=== PATIENT | female | born 1975 | race Caucasian/White ===

== ENCOUNTER 2017-04-18 13:51 | Outpatient (CLI) | payer SELFPAY ==
[2017-04-18 14:08] VITALS: BP 101/61
[2017-04-18] MEDS ORDERED: LACTATED RINGERS 500 ML IV ONE (14:09)
[2017-04-18 14:58] LABS: Bacteria,Urine 1+ /HPF (Negative); Bilirubin,Urine NEG (Negative); Blood,Urine SM (Negative); Ketones,Urine NEG (Negative); Leukocyte Esterase,Urine TR (Negative); Mucus,Urine FEW /HPF; Nitrite,Urine NEG (Negative); Protein,Urine <15 mg/dL mg/dL (Negative); Urobilinogen,Urine < 2.0 mg/dL (<2.0)
--- NOTE | 2017-04-18 15:53 | Progress Note ---
Assessment and Plan A: at 22 weeks, 4 days gestation. Vaginal bleeding. Abdominal pain. P: EFM. US to check placental location and integrity and measure cervical length. IV hydration. VS monitoring. Labs (CBC, T&S, PT, PTT, fibrinogen, UA, UDS). Consulted with Dr. Chen regarding this patient and interventions ordered. Subjective - Subjective Date of service: 04/18/17 Principal diagnosis: at 22 weeks, 4 days gestation; vaginal bleeding for 5-6 days Interval history: 41 year old female presents to L&D triage complaining of vaginal bleeding for past 5-6 days. She states bleeding is light to moderate and was heaviest yesterday. Patient reports bleeding is maroon color and she has to change a pad about 4 times per day but it is not soaked every time. Patient denies leaking of fluid. She denies falls or abdominal trauma. She denies regular contractions. She reports mild cramping in lower pelvic midline. She reports active movement. Patient denies urinary symptoms. She reports 3 previous SVDs at term; she reports that all three of her previous pregnancies were uncomplicated. She states she has been receiving care at [facility] but no records are available today. Patient reports: vaginal bleeding, movement normal, no loss of fluid, no contractions Objective - Vital Signs Vital Signs: Vital Signs - 12hr 04/18/17 04/18/17 04/18/17 14:09 14:10 14:11 Temperature 96.9 F L Pulse Rate 83 98 H 86 Respiratory 20 Rate Blood Pressure 101/61 Blood Pressure 101/61 [Right] O2 Sat by Pulse 98 98 Oximetry 04/18/17 04/18/17 04/18/17 14:14 14:19 14:24 Temperature Pulse Rate 99 H 98 H 102 H Respiratory Rate Blood Pressure Blood Pressure [Right] O2 Sat by Pulse 98 98 98 Oximetry 04/18/17 04/18/17 04/18/17 14:29 14:34 14:39 Temperature Pulse Rate 98 H 96 H 95 H Respiratory Rate Blood Pressure Blood Pressure [Right] O2 Sat by Pulse 97 98 98 Oximetry 04/18/17 04/18/17 04/18/17 14:44 14:49 14:54 Temperature Pulse Rate 82 90 85 Respiratory Rate Blood Pressure Blood Pressure [Right] O2 Sat by Pulse 99 97 98 Oximetry - Exam Breasts: deferred Abdomen: Present: normal appearance, soft. Absent: distention, tenderness, guarding Uterus: Present: normal, other (gravid; maroon bleeding seen in vagina, moderate amount; no clots seen). Absent: tenderness FHR: other (FHR AGA, normal baseline) Uterine Contraction Monitor Mode: Palpation Uterine Contraction Frequency (min): Irritability Extremities: normal - Labs Labs: Laboratory Results - last 24 hr 04/18/17 14:20 Urine Color Yellow Urine Turbidity Clear Urine pH 6.0 Ur Specific [place] 1.024 Urine Protein <15 mg/dl Urine Glucose (UA) Neg Urine Ketones Neg Urine Blood Sm Urine Nitrite Neg Urine Bilirubin Neg Urine Urobilinogen < 2.0 Ur Leukocyte Esterase Tr Urine WBC (Auto) 3.0 Urine RBC (Auto) 5.0 U Epithel Cells (Auto) 3.0 Urine Bacteria (Auto) 1+ Urine Mucus Few
--- NOTE | 2017-04-18 17:06 | Ultrasound Report ---
FINAL REPORT EXAM: US OB LIMITED HISTORY: vaginal bleeding/abdominal pain/ 22 4/7wk TECHNIQUE: Grayscale and color doppler ultrasound of the fetus was performed. PRIORS: None. FINDINGS: A single, live intrauterine fetus is present in transverse with the head to the maternal left presentation with a heart rate of 153 beats per minute. The placenta is grade 0 and anterior in location. No evidence of placenta previa. The maternal cervix is closed measuring 3.7 centimeters in length. The amniotic fluid volume is subjectively normal. Two uterine fibroids are seen anteriorly. One measures 2.0 x 2.0 x 1.2 centimeters and the other measures 1.6 x 1.5 x 1.2 centimeters. No evidence of placental abruption. IMPRESSION: Live intrauterine fetus. No evidence of placental abnormality. Two small uterine fibroids.
[2017-04-18 17:48] LABS: Eosinophils % (Auto) 4.7 % (0.0-4.3); Hematocrit 27.6 % (30.3-42.9); Hemoglobin 9.6 gm/dl (10.1-14.3); Mean Corpuscular HGB Conc 35 % (30-34); Mean Corpuscular Hemoglobin 32 pg (28-32); Mean Corpuscular Volume 92 fl (79-97); Platelet Count 288 K/mm3 (140-440); Red Cell Distribution Width 13.9 % (13.2-15.2); White Blood Count 11.3 K/mm3 (4.5-11.0)
[2017-04-18 18:10] LABS: INR 1.06 (0.87-1.13)
[2017-04-18 18:11] LABS: Partial Thromboplastin Time 25.7 Sec. (24.2-36.6)
--- NOTE | 2017-04-18 19:18 | Event Note ---
Date: 04/18/17 US shows 2 small fibroids, otherwise normal. Labs show mild anemia. Cervix closed and thick. No contractions. Follow up speculum exam performed and very scant amount of pinkish brown discharge seen in posterior fornix. No active bleeding seen. No leaking of water seen. Normal FHR. Advised patient she needs to see perinatologist. I told her I will call [facility] tomorrow and tell them to set her up to see [facility] as soon as possible. Rx for iron, Macrobid and Flagyl with instructions. Advised pt. to rest and avoid IC and drink more water. Warning signs reviewed. Pt. voiced understanding of discharge instructions. Dr. Chen consulted and states he is in agreement with this plan.
== END 2017-04-18 19:39 | disposition home or self-care (01) ==
LOC: TRG 13:51
PROVIDERS: ATTEND Obstetrics & Gynecology
DX: O46.92 Antepartum hemorrhage, unspecified, second trimester (principal); O32.2XX0 Maternal care for transverse and oblique lie, not applicable or unspecified; O34.12 Maternal care for benign tumor of corpus uteri, second trimester; O99.012 Anemia complicating pregnancy, second trimester; O26.892 Other specified pregnancy related conditions, second trimester; R10.9 Unspecified abdominal pain; O47.02 False labor before 37 completed weeks of gestation, second trimester; Z3A.22 22 weeks gestation of pregnancy
CPT/HCPCS: 36415; 76815; 81001; 85025; 85384; 85610; 85730; 86850; 86900; 86901; 96360; J7120

== ENCOUNTER 2017-07-31 12:02 | Outpatient (CLI) | payer SELFPAY ==
[2017-07-31 12:48] VITALS: BP 106/66
[2017-07-31] MEDS ORDERED: TYLENOL PO ONE (13:22)
[2017-07-31 13:41] LABS: Bilirubin,Urine NEG (Negative); Blood,Urine NEG (Negative); Ketones,Urine NEG (Negative); Leukocyte Esterase,Urine NEG (Negative); Mucus,Urine FEW /HPF; Nitrite,Urine NEG (Negative); Protein,Urine <15 mg/dL mg/dL (Negative); Urobilinogen,Urine < 2.0 mg/dL (<2.0)
== END 2017-07-31 14:18 | disposition home or self-care (01) ==
LOC: TRG 12:02
PROVIDERS: ATTEND Obstetrics & Gynecology
DX: O09.523 Supervision of elderly multigravida, third trimester (principal); O47.1 False labor at or after 37 completed weeks of gestation; Z3A.38 38 weeks gestation of pregnancy
CPT/HCPCS: 59025; 81001

== ENCOUNTER 2017-08-11 06:45 | Inpatient (IN) | payer OTHER ==
[2017-08-11] MEDS: LACTATED RINGERS 1,000 ML IV SCH ×2 (08:35→10:56)
[2017-08-11 08:56] LABS: Basophils # (Auto) 0.1 K/mm3 (0.0-0.1); Eosinophils # (Auto) 0.6 K/mm3 (0.0-0.4); Eosinophils % (Auto) 5.4 % (0.0-4.3); Hematocrit 34.1 % (30.3-42.9); Hemoglobin 11.5 gm/dl (10.1-14.3); Lymphocytes # (Auto) 2.2 K/mm3 (1.2-5.4); Lymphocytes % (Auto) 19.9 % (13.4-35.0); Mean Corpuscular HGB Conc 34 % (30-34); Mean Corpuscular Hemoglobin 30 pg (28-32); Mean Corpuscular Volume 91 fl (79-97); Monocytes # (Auto) 0.6 K/mm3 (0.0-0.8); Monocytes % (Auto) 5.3 % (0.0-7.3); Platelet Count 286 K/mm3 (140-440); Red Blood Count 3.77 M/mm3 (3.65-5.03)
[2017-08-11] MEDS ORDERED: POLYCILLIN/NS 2 GM/100 ML 2 GM/100 ML BAG IV ONE (09:00)
[2017-08-11] MEDS ORDERED: SUBLIMAZE IV NR (09:30)
[2017-08-11] MEDS ORDERED: LACTATED RINGERS 1,000 ML IV SCH (11:00)
[2017-08-11] MEDS ORDERED: PITOCin/NS 20 UNIT/1000ML DRIP 20 UNITS/1,000 ML BAG IV SCH (11:00)
[2017-08-11] MEDS ORDERED: PITOCin/NS 30 UNIT/500ML 30 UNITS/500 ML BAG IV SCH (11:00)
[2017-08-11] MEDS ORDERED: BRETHINE SUB-Q PRN (11:30)
[2017-08-11] MEDS ORDERED: XYLOCAINE 2% INFILTRATI ONE (11:30)
[2017-08-11] MEDS ORDERED: STADOL IV PRN (11:30)
[2017-08-11] MEDS ORDERED: ePHEDrine SULFATE IV PRN ×2 (11:30→17:03)
[2017-08-11] MEDS ORDERED: BRETHINE IVP PRN (12:00)
[2017-08-11] MEDS ORDERED: POLYCILLIN/NS 1 GM/50 ML 1 GM/50 ML BAG IV SCH (14:00)
--- NOTE | 2017-08-11 14:31 | History and Physical Report ---
History of Present Illness Date of examination: 08/11/17 Date of admission: 08/11/17 08:16 Chief complaint: My water broke at 0500 this morning History of present illness: States she got care at [facility], clinic was contacted, they state she only had one visit in March. [facility] is unable to fax records due to their power being out. Past History Past Medical History: no pertinent history Past Surgical History: no surgical history Family/Genetic History: none Social history: no significant social history - Obstetrical History Expected Date of Delivery: 08/18/17 Actual Gestation: 39 Week(s) 0 Day(s) : 5 Para: 4 Number of Living Children: 4 Medications and Allergies Allergies Allergy/AdvReac Type Severity Reaction Status Date / Time No Known Allergies Allergy Verified 07/31/17 13:34 Home Medications Medication Instructions Recorded Confirmed Last Taken Type Vit-Fe Fumar-FA [ 1 tab PO QDAY 07/31/17 08/11/17 08/10/17 12: 00 History Vitamin] Active Meds: Active Medications Butorphanol Tartrate (Stadol) 2 mg IV Q2H PRN PRN Reason: Labor Pain Ephedrine Sulfate (Ephedrine Sulfate) 10 mg IV Q2M PRN PRN Reason: Hypotension Stop: 08/11/17 16:00 Ampicillin Sodium (Polycillin/Ns 1 Gm/50 Ml) 1 gm in 50 mls @ 100 mls/hr IV Q4HR LUIS PRN Reason: Protocol Lactated Ringer's (Lactated Ringers) 1,000 mls @ 125 mls/hr IV DIRECT LUIS Oxytocin/Sodium Chloride (Pitocin/Ns 20 Unit/1000ml Drip) 20 units in 1,000 mls @ 125 mls/hr IV DIRECT LUIS Oxytocin/Sodium Chloride (Pitocin/Ns 30 Unit/500ml) 30 units in 500 mls @ 4 mls /hr IV TITR LUIS; 4 MILLIUNITS/MIN PRN Reason: Protocol Last Titration: 08/11/17 12:52 Dose: 12 milliunits/min, 12 mls/hr Mineral Oil (Mineral Oil) 30 ml PO QHS PRN PRN Reason: Constipation Terbutaline Sulfate (Brethine) 0.25 mg SUB-Q ONCE PRN PRN Reason: Hyperstimulation/Hypertonicity Terbutaline Sulfate (Brethine) 0.25 mg IVP ONCE PRN PRN Reason: Hyperstimulation/Hypertonicity Review of Systems All systems: negative - Vital Signs Vital signs: Vital Signs Temp Pulse Resp BP 98.3 F 83 18 115/70 08/11/17 08:40 08/11/17 08:40 08/11/17 08:40 08/11/17 08:40 Temp Pulse Resp BP Pulse Ox 98.3 F 82 16 121/72 08/11/17 11:29 08/11/17 11:34 08/11/17 11:29 08/11/17 11:34 - Physical Exam Abdomen: Positive: normal appearance Genitourinary (Female): Positive: normal external genitalia, normal perenium Vagina: Positive: normal moisture Uterus: Positive: enlarged Anus/Rectum: Positive: normal perianal skin - Obstetrical FHR: category 1 Uterine Contraction Monitor Mode: External Cervical Dilatation: 3 (moderate amount of clear fluid leaking) Cervical Effacement Percentage: 30 station: -2 Uterine Contraction Pattern: Irregular Uterine Tone Measurement Phase: Resting Uterine Contraction Intensity: Mild Results Result Diagrams: 08/11/17 08:35 Abnormal lab results 08/11/17 Range/Units 08:35 Eos % (Auto) 5.4 H (0.0-4.3) % Eos # 0.6 H (0.0-0.4) K/mm3 All other labs normal. Assessment and Plan A: IUP @39 Weeks PROM Category I Tracing GBS Unknown Insufficient Care P: Admit to L&D per routine orders Walk-In Labs Pitocin Induction GBS prophylaxis
[2017-08-11] MEDS ORDERED: ePHEDrine SULFATE ONE (16:47)
[2017-08-11] MEDS ORDERED: NARCAN 2 MG/2 ML IV PRN (17:03)
--- NOTE | 2017-08-11 17:03 | Anesthesia Consultation ---
Anesthesia Consult and Med Hx Date of service: 08/11/17 - Airway Anesthetic Teeth Evaluation: Good ROM Head & Neck: Adequate Mental/Hyoid Distance: Adequate Intubation Access Assessment: Probably Good - Pre-Operative Health Status ASA Pre-Surgery Classification: ASA2, Emergency Proposed Anesthetic Plan: Epidural, Spinal - Pulmonary Hx Asthma: No COPD: No Hx Pneumonia: No - Cardiovascular System Hx Hypertension: No - Central Nervous System Hx Seizures: No Hx Psychiatric Problems: No - Endocrine Hx Renal Disease: No Hx End Stage Renal Disease: No Hx Hypothyroidism: No Hx Hyperthyroidism: No - Hematic Hx Anemia: No Hx Sickle Cell Disease: No - Other Systems Hx Alcohol Use: No
[2017-08-11] MEDS ORDERED: MINERAL OIL ONE (17:04)
[2017-08-11] MEDS ORDERED: BENADRYL PO PRN (17:27)
[2017-08-11] MEDS ORDERED: PHENERGAN PR PRN (17:27)
[2017-08-11] MEDS ORDERED: MILK OF MAGNESIA PO PRN (17:27)
--- NOTE | 2017-08-11 17:34 | Procedure Note ---
OB Delivery Note - Delivery Date of Delivery: 08/11/17 (1717) Surgeon: ZENY DWYER Estimated blood loss: other (150) - Vaginal Delivery presentation: vertex Delivery position: OA Intrapartum events: mult.variable deceleratio Delivery induction: oxytocin Delivery monitor: external FHT, external uterine Route of delivery: Delivery placenta: spontaneous Delivery cord: nuchal cord (X2 (tight)), 3 umbilical vessels Delivery laceration: none Anesthesia: epidural Delivery comments: of a live 6'8 female infant over a intact perineum under epidural anesthesia with Apgars of 8 and 9 at 1717 on 08/11/2017. Very tight nuchal cord x 2, double clamped and cut on the perineum prior to delivery of the anterior shoulder. Spontaneous delivery of placenta complete and intact with Bach side presenting at 1723. Fundus is firm and midline located 4 below the U. Lochia is scant. GBS prophylaxis x 3. - Infant A at 1 minute: 8 at 5 minutes: 9 Infant Gender: Female (6'8)
[2017-08-11] MEDS ORDERED: SODIUM CHLORIDE FLUSH SYRINGE 10 ML IV NR (18:00)
[2017-08-11] MEDS ORDERED: fentaNYL-BUPIV 2 MCG/ML-0.125% 200 MCG/100 ML BAG EPIDURAL SCH (18:00)
[2017-08-11] MEDS: NORCO 5/325 PO PRN (20:40)
[2017-08-11] MEDS: MOTRIN PO SCH (21:27)
[2017-08-11] MEDS ORDERED: MINERAL OIL PO PRN (22:00)
[2017-08-12] MEDS: MOTRIN PO SCH ×2 (05:13→14:23)
[2017-08-12 05:49] LABS: Hematocrit 31.1 % (30.3-42.9); Hemoglobin 10.6 gm/dl (10.1-14.3)
[2017-08-12] MEDS ORDERED: BOOSTRIX IM ONE (06:00)
--- NOTE | 2017-08-12 08:15 | Progress Note ---
Subjective Date of service: 08/11/17 (NA[facility], per pt) Objective - Constitutional Vitals: Vital Signs - 12hr 08/11/17 08/11/17 08/12/17 20:40 21:38 01:45 Temperature 99.2 F 98.5 F Pulse Rate 89 76 Respiratory 18 20 18 Rate Blood Pressure 113/71 103/56 [Left] - Labs CBC & Chem 7: 08/12/17 04:28 Labs: Abnormal lab results 08/11/17 Range/Units 08:35 Eos % (Auto) 5.4 H (0.0-4.3) % Eos # 0.6 H (0.0-0.4) K/mm3
--- NOTE | 2017-08-12 10:26 | Progress Note ---
Assessment and Plan A: PP Day #1 Stable P: Follow Routine Orders Depo Provera prior to discharge D/C home today RTO in 6 Weeks Subjective - Subjective Date of service: 08/12/17 Interval history: States she got care at [facility], clinic was contacted, they state she only had one visit in March. [facility] is unable to fax records due to their power being out. Patient reports: appetite normal, voiding normally, pain well controlled, flatus , ambulating normally : doing well Objective - Vital Signs Latest vital signs: Vital Signs Temp Pulse Resp BP BP 08/12/17 05:20 97.7 F 75 18 112/69 08/12/17 01:45 98.5 F 76 18 103/56 08/11/17 21:38 99.2 F 89 20 113/71 08/11/17 20:40 18 08/11/17 18:46 75 123/64 08/11/17 18:32 81 122/62 08/11/17 18:16 94 H 138/58 08/11/17 18:01 100 H 124/75 08/11/17 17:46 99 H 125/62 08/11/17 11:34 82 121/72 08/11/17 11:29 98.3 F 82 16 121/72 Intake and Output 08/11/17 08/12/17 08/12/17 22:59 06:59 14:59 Intake Total 240 Output Total 300 600 Balance -300 -360 Intake: Intake, Free Water 240 Output: Urine 300 600 Void 300 600 Other: Total, Output Amount 300 200 Estimated Blood Loss 150 - Exam Breasts: Present: normal Cardiovascular: Present: Regular rate Lungs: Present: Clear to auscultation, Normal air movement Abdomen: Present: normal appearance, soft, normal bowel sounds Uterus: Present: normal, firm, fundal height below umbilicus Extremities: Present: normal
--- NOTE | 2017-08-12 10:30 | Discharge Summary ---
Providers - Providers Date of Admission: 08/11/17 08:16 Date of discharge: 08/12/17 Attending physician: NOMI MARISCAL MD Primary care physician: NOMI MARISCAL MD Hospitalization Reason for admission: active labor Delivery: Episiotomy: none Laceration: none Other procedures: none complications: none Discharge diagnosis: IUP at term delivered [place] baby: female Condition at discharge: Good Disposition: DC-01 TO HOME OR SELFCARE Plan - Provider Discharge Summary Activity: routine, no sex for 6 weeks, no heavy lifting 4 weeks, no strenuous exercise Diet: routine Instructions: routine Additional instructions: [] Smoking cessation referral if applicable(refer to patient education folder for contact #) [] Refer to [facility] Booklet Call your doctor immediately for: * Fever > 100.5 * Heavy vaginal bleeding ( >1 pad per hour) * Severe persistent headache * Shortness of breath * Reddened, hot, painful area to leg or breast * Drainage or odor from incision. * Keep incision clean and dry at all times and follow doctor's instructions regarding bathing/showering - Follow up plan Follow up: NOMI MARISCAL MD [Primary Care Provider] - 6 Weeks
[2017-08-12] MEDS ORDERED: DEPO-PROVERA (CONTRACEPTION) IM NR (11:00)
[2017-08-12] MEDS: NORCO 5/325 PO PRN (14:24)
[2017-08-13] MEDS: MOTRIN PO SCH ×3 (00:05→14:07)
[2017-08-13 13:43] VITALS: BP 137/83
== END 2017-08-13 14:30 | disposition home or self-care (01) | DRG 775 ==
LOC: TRG 06:45 → LD 08:16 → OB 19:53
PROVIDERS: ADMIT Obstetrics & Gynecology; ATTEND Obstetrics & Gynecology
PROC: 10E0XZZ Delivery of Products of Conception, External Approach (ICD-10-PCS; principal; 2017-08-11)
PROC: 3E033VJ Introduction of Other Hormone into Peripheral Vein, Percutaneous Approach (ICD-10-PCS; 2017-08-11)
PROC: 3E0R3BZ Introduction of Anesthetic Agent into Spinal Canal, Percutaneous Approach (ICD-10-PCS; 2017-08-11)
PROC: 00HU33Z Insertion of Infusion Device into Spinal Canal, Percutaneous Approach (ICD-10-PCS; 2017-08-11)
PROC: 3E0234Z Introduction of Serum, Toxoid and Vaccine into Muscle, Percutaneous Approach (ICD-10-PCS; 2017-08-12)
DX: O69.1XX0 Labor and delivery complicated by cord around neck, with compression, not applicable or unspecified (principal); O76 Abnormality in fetal heart rate and rhythm complicating labor and delivery; Z3A.39 39 weeks gestation of pregnancy; Z37.0 Single live birth; Z23 Encounter for immunization
CPT/HCPCS: 36415; 85014; 85018; 85025; 86592; 86850; 86900; 86901; 90471; 90715; J0290; J0595; J1050; J2590; J7120